=== PATIENT | male | born 1965 | race Caucasian/White ===

== ENCOUNTER → 2020-11-07 08:11 | Outpatient (CLI) | payer BC, SELFPAY ==
--- NOTE | ~2020-11-07 | MR_ITS ---
EXAMINATION: MR thoracic spine wo con DATE: 11/07/2020 09:05 INDICATION: Thoracic back pain. TECHNIQUE: Magnetic resonance imaging (MRI) of the thoracic spine was performed without intravenous c ontrast. Sagittal localizer T1-weighted FSE of the cervical spine was obtained. Thoracic spine sequen monica included sagittal T2-weighted FSE, sagittal T1-weighted FSE, sagittal T2-weighted FS FSE, and axi al T2-weighted FSE. COMPARISON: Chest 2 views 09/05/17 FINDINGS: There is 12 degrees dextroscoliosis of upper thoracic spine and 11 degrees levoscoliosis of lower thoracic spine. Vertebral body heights are normal in thoracic spine. There is a hemangioma in T5 vertebral body. There is mild cervical spondylosis. There is mildly decreased disc height at T5-T6 , T6-T7, T8-T9, and T9-T10. The discs do not extend beyond the endplate margins in thoracic spine. Th ere is multilevel mild facet joint osteoarthritis in thoracic spine. No thoracic neural foraminal maida nosis. The spinal cord signal intensity is normal. IMPRESSION: 1. Scoliosis. 2. Mild thoracic spondylosis. Reviewed, dictated and finalized at location A.
== END ==
PROVIDERS: PCP Physician Assistant; Visit Provider Nurse Practitioner Family
DX: M41.9 Scoliosis, unspecified (principal); M47.894 Other spondylosis, thoracic region
CPT/HCPCS: 72146

== ENCOUNTER 2023-03-24 14:35 | Outpatient (CLI) | payer BC, SELFPAY ==
--- NOTE | ~2023-03-24 | XR_ITS ---
XR hand RT min 3V 03/24/2023 15:12 Indication: Arthralgias. Procedure: 3 views right hand Comparison: No prior studies for comparison. Findings: Mild polyarticular osteoarthritis. No fracture, subluxation or dislocation. No erosive spann ges. No foreign bodies. Impression: 1: Mild polyarticular osteoarthritis. Reviewed, dictated and finalized at location A. Impression: 1: Mild polyarticular osteoarthritis.
--- NOTE | ~2023-03-24 | XR_ITS ---
XR sacroiliac joints min 3V 03/24/2023 15:12 Indication: Arthralgias Procedure: 3 views of the sacroiliac joints Comparison: No prior studies for comparison. Findings: Sacroiliac joints are symmetric with mild degenerative changes. No erosive changes. No anky losis. Sacral foramen are symmetric. Surrounding osseous structures are unremarkable. Impression: 1: Mild symmetric degenerative change of the sacroiliac joints. Reviewed, dictated and finalized at location A. Impression: 1: Mild symmetric degenerative change of the sacroiliac joints.
--- NOTE | ~2023-03-24 | XR_ITS ---
XR foot LT min 3V 03/24/2023 15:12 Indication: Arthralgias Procedure: 4 views left foot Comparison: No prior studies for comparison. Findings: There is anatomic alignment. There is an exostosis originating from the lateral margin of t he fourth metatarsal, likely benign. No acute fracture or traumatic malalignment. Lisfranc joint inta ct. No significant joint space narrowing. No erosive changes. Impression: 1: No significant bone or joint abnormality. Reviewed, dictated and finalized at location A. Impression: 1: No significant bone or joint abnormality.
--- NOTE | ~2023-03-24 | XR_ITS ---
XR hand LT min 3V 03/24/2023 15:12 Indication: Left hand pain. Polyarthralgias. Procedure: 3 views left hand Comparison: No prior studies for comparison. Findings: There is mild polyarticular osteoarthritis of the left hand. Normal mineralization. There i s anatomic alignment. No fracture or traumatic malalignment. No soft tissue abnormality. No foreign b odies. Impression: 1: Mild polyarticular osteoarthritis of the left hand. Reviewed, dictated and finalized at location A. Impression: 1: Mild polyarticular osteoarthritis of the left hand.
--- NOTE | ~2023-03-24 | XR_ITS ---
XR foot RT min 3V 03/24/2023 15:12 INDICATION: Right foot pain PROCEDURE: 4 views right foot COMPARISON: No prior studies for comparison. FINDINGS: Fracture, dislocation or subluxation is not identified. There is anatomic alignment. No sig nificant degenerative change. The soft tissues appear within normal limits. No foreign bodies are id entified. IMPRESSION: 1: No significant bone or joint abnormality. Reviewed, dictated and finalized at location A.
--- NOTE | ~2023-03-24 | XR_ITS ---
[XR_[id number]_CR ] INDICATION: Arthralgias TECHNIQUE: Frontal projection of the upper ribs, frontal projection of the lower ribs, oblique projec tion of all the ribs, frontal inspiratory chest x-ray for interpretation. FINDINGS: There are no displaced rib fractures identified. There are no soft tissue abnormality see n. The lungs are clear. There is scoliosis. There is a radiopaque BB overlying the lower chest. IMPRESSION: 1:No acute displaced rib fractures. Reviewed, dictated and finalized at location A.
--- NOTE | ~2023-03-24 | XR_ITS ---
XR sternoclavicular joint BI 03/24/2023 15:12 INDICATION: Arthralgias PROCEDURE: 3 views of the sternoclavicular joints COMPARISON: No prior studies for comparison. FINDINGS: Fracture, dislocation or subluxation is not identified. No erosive changes. No asymmetry. T he soft tissues appear within normal limits. No foreign bodies are identified. IMPRESSION: 1: No significant bone or joint abnormality. Reviewed, dictated and finalized at location A.
--- NOTE | ~2023-03-24 | XR_ITS ---
XR lumbar spine 2-3V 03/24/2023 15:12 Indication: Arthralgia Procedure: 3 views lumbar spine Comparison: No prior studies for comparison. Findings: Vertebral body heights are maintained. There is mild dextrocurvature. No fracture, subluxat ion or dislocation. There is a probable right L1 transverse process fracture, most likely chronic. Th ere is disc narrowing at L5-S1. There is facet hypertrophy at this level. Impression: 1: Moderate lumbar spondylosis with dextroscoliosis. 2: Probable healed right L1 transverse process fracture, most likely chronic. Reviewed, dictated and finalized at location A. Impression: 1: Moderate lumbar spondylosis with dextroscoliosis. 2: Probable healed right L1 transverse process fracture, most likely chronic.
== END 2023-03-24 14:36 | disposition home or self-care (01) ==
LOC: ANHIMG 14:40
PROVIDERS: PCP Physician Assistant; Visit Provider Physician Assistant Medical
DX: M25.50 Pain in unspecified joint (principal); Z79.899 Other long term (current) drug therapy; L40.9 Psoriasis, unspecified; M19.042 Primary osteoarthritis, left hand; M19.041 Primary osteoarthritis, right hand; M47.896 Other spondylosis, lumbar region; M53.3 Sacrococcygeal disorders, not elsewhere classified
CPT/HCPCS: 71111; 71130; 72100; 72202; 73130; 73630

== ENCOUNTER 2024-11-13 13:38 | Outpatient (CLI) | payer BC, SELFPAY ==
--- NOTE | ~2024-11-13 | XR_ITS ---
XR sacroiliac joints min 3V Ordering provider: Jennifer Sanchez MD History: . ANKYLOSING SPONDYLITIS OF UNSPEC SITES IN SPINE . Comparison: None. FINDINGS: BONES: No acute fracture or dislocation. Sclerotic area seen in the intertrochanteric area bilaterally. JOINTS: The bilateral sacroiliac joint spaces shows bilateral sacroiliitis. Possible bony fusion of t he sacroiliac joints is seen. SOFT TISSUES: Unremarkable. IMPRESSION: NO ACUTE OSSEOUS ABNORMALITY. Bilateral sacroiliitis with fusion. Reviewed, dictated and finalized at location A.
--- NOTE | ~2024-11-13 | XR_ITS ---
XR_RIBSBI_CR Ordering provider: Jennifer Sanchez MD History: . ANKYLOSING SPONDYLITIS OF UNSPEC SITES IN SPINE . Comparison: None. FINDINGS: BONES: No acute rib fracture. Levoscoliosis of the spine. MEDIASTINUM: The cardiac silhouette is not enlarged. LUNGS: No effusions or infiltrates. No pneumothorax. SOFT TISSUES: Normal. Metallic shadow is seen in the soft tissues. IMPRESSION: No acute osseous abnormality of the bilateral ribs. Reviewed, dictated and finalized at location A.
--- NOTE | ~2024-11-13 | XR_ITS ---
3 VIEWS LUMBAR SPINE Ordering provider: Jennifer Sanchez MD History: . ANKYLOSING SPONDYLITIS OF UNSPEC SITES IN SPINE . Comparison: March 24, 2023. FINDINGS: VERTEBRAL BODIES: No visible fracture or subluxation. DISK SPACES: Narrowing of the disc L5-S1. Bilateral sacroiliitis. SOFT TISSUES: Normal. IMPRESSION: No acute osseous abnormality lumbar spine. Degenerative disc disease at the level of L5-S1. Bilateral sacroiliacs. Reviewed, dictated and finalized at location A.
--- OUTSIDE RECORDS SUMMARY | 2024-11-13 13:44 | XMS_ITS | Data Portability ---
Author Organization [facility], Main Office Address [address] [place] [address] Assessment No assessment recorded. Plan of Treatment Reminders Order Date Submit Date Provider Last Modified By Organization Details Last Modified Time Details Appointments None record ed. Lab None record ed. Referral None record ed. Procedures None record ed. Surgeries None record ed. Imaging None record ed. Medication Orders None record ed. Patient TargetsNo targets recorded. Patient InstructionsNo instructions recorded. Reason for Referral None Reported. Problems Name Problem SNOMED Code Status Onset Date Resolution Date Notes Provider Name and Address Organization Details Recorded Time Disorder of shoulder 944043265 Active Not Available [facility] 3 13:17:58 Shoulder joint pain 089607956 Active Not Available [facility] 3 13:17:58 Pain in thoracic spine 246939399 Active Not Available [facility] 3 13:17:58 Pain in limb 22079465 Active Not Available [facility] 3 13:17:58 Impacted cerumen of bilateral ears 8160836275116 108 Active 2022 Forrest Meredith MD [address] [place] [address], [phone] , [facility] [employer] 3 14:31:11 Problem Notes None recorded. Medical Equipment None Reported. Allergies No known drug allergies Medications Name Sig Start Date Stop Date Status Note LastModified by Organization Details LastModified Time celecoxib 200 mg capsule 10/28 completed Not Available Not Available Not Available cyclobenzapr ine 10 mg tablet 10/28 completed Not Available Not Available Not Available prednisone 10 mg tablet 10/28 completed Not Available Not Available Not Available hydrocodone 5 mg-acetamino phen 325 mg tablet 10/28 completed Not Available Not Available Not Available ondansetron HCl 4 mg tablet 10/28 completed Not Available Not Available Not Available acetaminophe n 300 mg-codeine 30 mg tablet 10/28 completed Not Available Not Available Not Available ciprofloxaci n 500 mg tablet 10/28 completed Not Available Not Available Not Available omeprazole 40 mg capsule,hilario yed release 10/28 completed Not Available Not Available Not Available lorazepam 0.5 mg tablet 10/28 completed Not Available Not Available Not Available tamsulosin 0.4 mg capsule 10/28 completed Not Available Not Available Not Available cephalexin 500 mg capsule 10/28 completed Not Available Not Available Not Available oseltamivir 75 mg capsule 10/28 completed Not Available Not Available Not Available lansoprazole 15 mg capsule,hilario yed release 10/28 completed Not Available Not Available Not Available buspirone 7.5 mg tablet 10/28 completed Not Available Not Available Not Available diclofenac sodium 75 mg tablet,delay ed release 10/28 completed Not Available Not Available Not Available ibuprofen 600 mg tablet 10/28 completed Not Available Not Available Not Available amoxicillin 875 mg-potassium clavulanate 125 mg tablet 10/28 completed Not Available Not Available Not Available Tylenol TYLENOL # 3 active Q DAY Not Available Not Available No t Available Chantix Starting Month Box 0.5 mg (11)-1 mg (42) tablets in dose pack 10/28 completed Not Available Not Available Not Available Flucelvax Quad 8789-3561 (PF) 60 mcg (15 mcg x 4)/0.5 mL IM syringe 10/28 completed Not Available Not Available Not Available Afluria Quad (PF) 60 mcg (15 mcg x 4)/0.5 mL IM syringe ADM 0.5ML IM UTD active Not Available Not Available No t Available Vitals Date Recorded Body weight Body mass index (BMI) Body height Body temperature Provider Name and Address Organization Details Last Updated DateTime 05/18/2023 94174.19 g 19.5 kg/m2 175.26 cm 98.2 [degF] Iris Watesr RN [place] - [place] [facility] 05/18/2023 14:05:25 Social History None recorded. Functional Status Question Answer Note LastModified by Organizat ion Details LastModified Time What is your level of alcohol consumption? Occasional [email or web address] Information not available 04/24/2023 Mental Status None recorded. Family History Relationship Description Onset Age of this Age Resolved Age Notes LastModified by Organization Details LastModified Time Father No current problems or disability [email or web address] Not available 04/24 15:33:57 Mother No current problems or disability [email or web address] Not available 04/24 15:33:57 Medical History Condition Response MRSA N BACK INJECTIONS N ALLERGIES/HAYFEVER N LUNG DISEASE/DISORDER N HISTORY OF DRUG ABUSE N INSOMNIA N ESRD N RADIATION / CHEMOTHERAPY N COPD N HIGH CHOLESTEROL / HYPERLIPIDEMIA N HYPERTHYROIDISM N PVD N BLOOD DISEASES N EAR OR HEARING PROBLEMS N HYPOTHYROIDISM N SHINGLES N DEPRESSION (INCLUDING POST ) N BACK / NECK PROBLEMS N HAVE YOU BEEN HOSPITALIZED OR SEEN IN [facility] ER IN THE PAST YEAR ? N FAILED BACK SYNDROME N STROKE/TIA N POLYCYSTIC OVARIES N OBESITY N ANEURYSM N HISTORY WITH COMPLICATIONS WITH ANESTHES IA ? N Do you have Advance directive? N USE OF BLOOD THINNERS N NO SIGNIFICANT PAST MEDICAL HISTORY N DIABETES, TYPE N VON WILLIBRAND'S DISEASE N PARATHYROID DISEASE N ENT N SEASONAL ALLERGIES N HEARTBURN / REFLUX N POST LAMINECTOMY SYNDROME N HEPATITIS / LIVER DISEASE N SLEEP DISORDER N ARTERIAL INSUFFICIENCY N SEIZURES/EPILEPSY N HEADACHES/MIGRAINES N CHF N PACEMAKER N DIZZINESS N AIDS/HIV N HEART DISEASE/HEART PROBLEMS N NEUROPSYCHOLOGICAL N HYPERTENSION N CANCER: SPECIFY N TOURETTE'S N BLOOD TRANSFUSION N ANEMIA/BLOOD DISORDER N ANESTHESIA COMPLICATIONS N CHRONIC EAR INFECTIONS N ATRIAL FIBRILLATION N AUTOIMMUNE DISEASE N TUBERCULOSIS N Past Encounters Encounter ID Performer Location Encounter Start Date Encounter Closed Date Diagnosis/Indication Diagnosis SNOMED-CT Code Diagnosis ICD10 Code Diagnosis Note [id number] Forrest Meredith MD [facility] [place] [address] [place] [address] 05/18/2023 13:58:38 05/18/2023 15:00:57 Impacted cerumen of bilateral ears 1256249770 219293 H61.23 Health Concerns Section Related Observation LastModified by Organization Detai ls LastModified Time None Recorded Concern Status LastModified by Organization Details LastModified Time None Recorded Advance Directives Directive None Recorded Payers Encounter Date Sequence Insurance Name Policy Number Policy Dueñas Covered Member ID Dueñas Member ID Guarantor Name 05/18/2023 1 MARLEEN (PPO) [id number] 4 Deshawn William [id number] BY Deshawn William Notes Date Note Type Note Provider Name a vt Address Organization Details Recorded Time 05/18/2023 text/html ear sherry Meredith MD [address] [place] [address], [place], [address], [facility] 05/18/2023 14:31:42
--- OUTSIDE RECORDS SUMMARY | 2024-11-13 13:44 | XMS_ITS | Clinical Summary ---
Author Organization [facility] Address [address] [address] Phone Care Team Providers Care [employer] Lieutenant Name Role Phone EstradaVance larkin Fauzia STOCKTON Primary Care Provider [phone] Felipe Key PAC Unavailable + [phone] Allergies No known active allergies Medications acetaminophen-code ine (TYLENOL #3) 300-30 MG Tablet 0 10/29/2017 Ac tive Social History Tobacco Use Types Packs/Day Years Used Date Smoking Tobacco: Former Smokeless Tobacco: Never Alcohol Use Standard Drinks/Week Comments Yes 0 (1 standard drink = 0.6 oz pur e alcohol) socially Sex and Gender Information Value Date Recorded Sex Assigned at Not on file Legal Sex Male 10:13 AM CDT Gender Identity Not on file Sexual Orientation Not on file Plan of Treatment Health Maintenance Due Date Last Done Comments Hepatitis C Virus (HCV) Screening 1965 TdaP Immunization 1965 Hepatitis B Immunization (1 of 3 - 19+ 3-dose series) 1984 Colonoscopy 2010 Colorectal Cancer Screening 2010 Cologuard 12/19/2015 Immunochemical Fecal Occult Blood 12/19/2015 Pneumococcal Immunization (5 0+ years) (1 of 1 - PCV) 12/19/2015 Zoster Immunization (1 of 2) 12/19/2015 PSA Discussion 2020 Influenza Immunization (#1) 2024 SARS-COV-2 Immunization ( - 2023-25 season) 2024 Respiratory Syncytial Virus (RSV) Immunization (Adult) (1 - 1-dose 75+ series) 2040 Meningococcal Immunization (ACWY) Aged Out No longer eligible based on patient's age to complete this topic Pneumococcal Immunization Combined Aged Out No longer eligible based on patient's age to complete this topic Rotavirus Immunization Aged Out No lo nger eligible based on patient's age to complete this topic Insurance [facility] Care Teams [employer] Lieutenant Relationship Specialty Start Date End Date Vance Linares DO [address] [place] [address] PCP - General Internal Medicine 09/26/17 Felipe Key PAC [address] [place] [address] Physician Health Management Consultant 09/26/17
--- OUTSIDE RECORDS SUMMARY | 2024-11-13 13:44 | XMS_ITS | Referral Summary ---
Author Organization [facility] Address [address] [place] [phone] Care Team Providers Care Work Checker Name Role Phone Shilpa Villavicencio Primary Care Provider [phone] Jame Bynum MD Unavailable [phone] Encounters Date Type Department Care Team Description 10/29/2024 11:30 AM CDT Ancillary Procedure [facility] Cardiology [address] [place] [phone] Palpitations 10/29/2024 11:00 AM CDT Office Visit [facility] Cardiology [address] [place] [phone] Johnson Hunt MD Palpitations (Primary Dx); MCKAY (dyspnea on exertion); Pulmonary emphysema, unspecified emphysema type (HCC); Tobacco abuse; Lipid screening 10/28/[address] [phone] Rosita Gleason CMA 10/21/2024 3:30 PM CDT Office Visit [facility] Family Medicine [address] [place] [address] [place] [phone] Shilpa Villavicencio PA Anxiety (Primary Dx); Cigarette smoker; Palpitations; Adult BMI <19 kg/sq m 08/19/2024 3:30 PM CDT Office Visit [facility] Medicine [address] [place] [address] [place] [phone] Shilpa Villavicencio PA Psoriatic arthritis (HCC) (Primary Dx); Palpitations; Chronic right shoulder pain; Cigarette smoker; Mixed hyperlipidemia; Prediabetes; Anxiety; Stress; Adult BMI <19 kg/sq m 08/13/2024 Results Follow-Up [facility] [address] [facility] [address] [place] [phone] Shilpa Villavicencio PA CBC with auto differential from Last 3 Months Allergies No known active allergies Medications cyclobenzapri ne (FLEXERIL) 10 mg tablet Take 1 tablet (10 mg total) by mouth 3 (three) times a day as needed for muscle spasms 30 tablet 10/11/19 23 Active LORazepam (ATIVAN) 0.5 mg tabletIndicat ions:Anxiety Take 1 tablet (0.5 mg total) by mouth 3 (three) times a day as needed for anxiety 20 tablet 01/02/20 23 Active clobetasoL (TEMOVATE) 0.05 % ointment APPLY TO AFFECTED AREAS OF HANDS TWICE A DAY FOR 2-3 WEEKS NEEDED. AVOID ARMPITS, FACE, AND GROIN 05/23/20 23 Active buPROPion XL (WELLBUTRIN XL) 150 mg 24 hr tablet Take 1 tablet (150 mg total) by mouth every morning 90 tablet 2 10/22/19 25 Active Additional Information Patient not taking.Reason: Other, Reported on 10/29/2024 acetaminophen -codeine (TYLENOL with CODEINE #3) 300-30 mg per tabletIndicat ions:Chronic right shoulder pain Take 1 tablet by mouth every 4 (four) hours as needed for pain for pain 60 tablet 11/12/19 25 Active buPROPion XL (WELLBUTRIN XL) 150 mg 24 hr tablet Take 1 tablet (150 mg total) by mouth every morning 90 tablet 2 08/20/19 25 025 Discontinued(Re order) acetaminophen -codeine (TYLENOL with CODEINE #3) 300-30 mg per tabletIndicat ions:Chronic right shoulder pain Take 1 tablet by mouth every 4 (four) hours as needed for pain for pain 60 tablet 08/26/19 25 025 Discontinued Active Problems Problem Noted Date Diagnosed Date Leukocytosis 02/20/2024 Assessment & Plan (02/20/2024 8:43 AM CDT): Patient is leukocytes were elevated. He has had more congestion and a productive cough. Will put him on Zithromax and complete the course and repeat CBC with a peripheral smear in the next few weeks. Follow-up pending those repeat labs Prediabetes 02/20/2024 Assessment & Plan (08/25/2024 8:42 PM CDT): Pre-diabetes/hyperglycemia is a precursor to Dm. Stressed importance of working on diet (decrease your simple sugars and one carbohydrate with each meal) and increase you exercise to achieve weight loss and this will help prevent you from progressing to diabetes. Assessment & Plan (02/20/2024 8:47 AM CDT): Pre-diabetes/hyperglycemia is a precursor to Dm. Stressed importance of working on diet (decrease your simple sugars and one carbohydrate with each meal) and increase you exercise to achieve weight loss and this will help prevent you from progressing to diabetes. Mixed hyperlipidemia 02/20/2024 Assessment & Plan (08/25/2024 8:42 PM CDT): Encouraged patient to follow low fat/low chol diet like the Mediterranean diet. Increase good fats in the diet. Increase exercise. Monitor labs as needed. Assessment & Plan (02/20/2024 8:48 AM CDT): Encouraged patient to follow low fat/low chol diet like the Mediterranean diet. Increase good fats in the diet. Increase exercise. Monitor labs as needed. Reviewed with patient as smoker he does have increased cardiovascular risk. Would be glad to start a statin. He really wants to work on diet changes 1st. Reassess in 6 months to a year Palpitations 06/25/2023 Assessment & Plan (08/25/2024 8:43 PM CDT): Patient has had palpitations for the last couple of years. Decreased his caffeine and did have some improvement that they are still present. Was referred to Dr. Hunt but had difficulty getting away from work. Would like new referral to see if he can follow-up to have this addressed. Encouraged to decrease caffeine soda coffee etc.. Stopped smoking Assessment & Plan (06/25/2023 11:11 AM [employer]): Patient is noting palpitations. Will have to hard fast beats and then kicked back into a normal rhythm. Can not really see a correlating factor. EKG in the office was essentially normal. Will refer to Cardiology for probable Holter monitor and further evaluation. Cigarette smoker 03/14/2023 Assessment & Plan (08/25/2024 8:42 PM CDT): Encouraged smoking cessation. Discussed 3 minutes. Reviewed options for assistance with cessation. Reviewed manager intermediate sequela associated with smoking. Pt declines assistance at this time but may contact the office at anytime for further help as they desire. Low-dose CT will be due in December. Order placed Assessment & Plan (02/20/2024 8:42 AM CDT): Encouraged continued efforts with smoking cessation. Patient is doing well with the Wellbutrin XL 150. Wants to keep the same dose. Continue to encourage reduction Assessment & Plan (12/03/2023 6:18 PM CDT): Pt desires assistance with cessation. Discussed options at length. Will start Wellbutrin. No seizure history. Reviewed risks, benefits, alternatives, side effects and proper use. Take first thing in the am to avoid sleep disturbances. Encouraged to decreased cigs as tolerated. Plan to stay on the Wellbutrin for 4-6 months, even if successful in cessation quickly. F.u if any increased emotional sxs or suicidal thoughts Due for LDCT. Assessment & Plan (06/25/2023 11:10 AM [employer]): Encouraged smoking cessation. Discussed 3 minutes. Reviewed options for assistance with cessation. Reviewed manager intermediate sequela associated with smoking. Pt declines assistance at this time but may contact the office at anytime for further help as they desire. Low-dose CT will be due in October of 2023 Assessment & Plan (03/14/2023 12:15 AM CDT): Encouraged smoking cessation. Discussed 3 minutes. Reviewed options for assistance with cessation. Reviewed manager intermediate sequela associated with smoking. Pt declines assistance at this time but may contact the office at anytime for further help as they desire. He is strongly considering hypnosis for assistance Adult BMI <19 kg/sq m 03/13/2023 Assessment & Plan (10/21/2024 3:32 PM CDT): Weight/BMI is in healthy range. Continue healthy lifestyle to maintain. Assessment & Plan (08/19/2024 3:33 PM CDT): Weight/BMI is in low range. Continue to work on weight gain to return to healthy weight. Assessment & Plan (02/20/2024 7:07 AM CDT): Weight/BMI is in healthy range. Continue healthy lifestyle to maintain. Assessment & Plan (11/23/2023 7:25 AM CDT): Weight/BMI is in healthy range. Continue healthy lifestyle to maintain. Assessment & Plan (06/25/2023 11:10 AM [employer]): Weight/BMI is in healthy range. Continue healthy lifestyle to maintain. Assessment & Plan (03/13/2023 5:21 PM CDT): Weight/BMI is in healthy range. Continue healthy lifestyle to maintain. Psoriasis 03/09/2023 Assessment & Plan (08/02/2023 1:57 PM [employer]): Dx by derm 02/21 with psoriasis. Assessment & Plan (07/28/2023 12:46 PM [employer]): Dx by derm 912 with psoriasis. Assessment & Plan (06/25/2023 11:10 AM [employer]): Continue per [facility]. Currently on methotrexate 15 q.week and folic acid. Does not feel like the methotrexate is giving him any help so he stopped it. Recommend calling [facility] and letting them know this so he can continue to find a management medication. Assessment & Plan (04/27/2023 7:48 AM [employer]): Dx by derm 9/12 with psoriasis. Assessment & Plan (03/14/2023 12:14 AM CDT): Continue per Dermatology. Currently using topicals Assessment & Plan (03/09/2023 8:31 AM CDT): Dx by derm 02/21 with psoriasis. Psoriatic arthritis 02/23/2023 Assessment & Plan (08/25/2024 8:43 PM CDT): Psoriatic arthritis diagnosis. He had been following with [facility] but difficult for him to make the trip over. Would like to be seen more locally to discuss biologics or other interventions as he is still in quite a bit of pain. Will make the referral to [place] peripatologist for further evaluation Assessment & Plan (02/20/2024 8:42 AM CDT): Encouraged follow-up with [facility] to discuss treatment options. Continue with Tylenol with codeine as needed for more severe pain Assessment & Plan (09/07/2023 8:13 AM CDT): Images from the original note were not included. Mod cdai. Pt has a lot of rib and chest wall/sternoclavicular joint pain. Pt has hand joint pain, sternoclavicular joint swelling (rt>lt), occ shoulder pain and sternocostal rib pain for years. He also was recently diagnosed with psoriasis. Serologies and physical findings compatible with psoriatic arthritis. Neg HLA B27 in past. He has tylenol 3 from pcp and flexeril for pain. He only took mtx for 6 weeks and stopped it since he thought it was not helping. It was also causing possible headache but not sure. Informed him again that he needs to be on this at least 3 months. Gave pt to day 1 month for sq rasuvo samples 15 mg sq weekly to inject and to continue FA 1 mg po every day and f/u in 1 month to re-evaluate. Recommend starting coxentyx 150mg sq monthly Check quant gold. Advised pt to stop smoking again. Previous labs and imaging: On his chest CT 10/2021 he had sclerotic changes along the right aspect the manubrium adjacent to the sternoclavicular joint. There is also sclerosis along the inferior margin of the sternum, nonspecific but stable. He also has emphysema changes on his chest CT. He has over 40 pack year history. Right hand US 03/2023: Cxr neg Hand xrays---mild bilat polyarticular OA of bilat hands Feet---no significant bone or joint abnromality Lumbar spine---mod lumbar spondylosis and dextroscoliosis. Healed L1 transverse process fracture, chronic. SI joints---mild symmetric degenerative change of the joints. Sternoclavicular joint xrays nl. Labs 03/2023: Anti smooth muscle Ab neg UA neg Hep A +/Hep B and C neg Crp 8.9H ESR 2 14.3.3 ETA neg IgG 1067 JUNG neg CMP neg UA neg CBC---wbc 11.4 Uric acid 3.4 RPR neg THO 36 CK 61 Assessment & Plan (08/03/2023 5:19 PM [employer]): Images from the original note were not included. Mod cdai. Pt has a lot of rib and chest wall/sternoclavicular joint pain. Pt has hand joint pain, sternoclavicular joint swelling (rt>lt), occ shoulder pain and sternocostal rib pain for years. He also was recently diagnosed with psoriasis. Serologies and physical findings compatible with psoriatic arthritis. Neg HLA B27 in past. He has tylenol 3 from pcp and flexeril for pain. He only took mtx for 6 weeks and stopped it since he thought it was not helping. It was also causing possible headache but not sure. Informed him again that he needs to be on this at least 3 months. Gave pt to day 1 month for sq rasuvo samples 15 mg sq weekly to inject and to continue FA 1 mg po every day and f/u in 1 month to re-evaluate. Check quant gold at next visit. Advised pt to stop smoking again. Previous labs and imaging: On his chest CT 10/2021 he had sclerotic changes along the right aspect the manubrium adjacent to the sternoclavicular joint. There is also sclerosis along the inferior margin of the sternum, nonspecific but stable. He also has emphysema changes on his chest CT. He has over 40 pack year history. Right hand US 03/2023: Cxr neg Hand xrays---mild bilat polyarticular OA of bilat hands Feet---no significant bone or joint abnromality Lumbar spine---mod lumbar spondylosis and dextroscoliosis. Healed L1 transverse process fracture, chronic. SI joints---mild symmetric degenerative change of the joints. Sternoclavicular joint xrays nl. Labs 03/2023: Anti smooth muscle Ab neg UA neg Hep A +/Hep B and C neg Crp 8.9H ESR 2 14.3.3 ETA neg IgG 1067 JUNG neg CMP neg UA neg CBC---wbc 11.4 Uric acid 3.4 RPR neg THO 36 CK 61 Assessment & Plan (07/28/2023 12:46 PM [employer]): Images from the original note were not included. Mod cdai. Pt has a lot of rib and chest wall/sternoclavicular joint pain. Pt has hand joint pain, sternoclavicular joint swelling (rt>lt), occ shoulder pain and sternocostal rib pain for years. He also was recently diagnosed with psoriasis. Serologies and physical findings compatible with psoriatic arthritis. Neg HLA B27 in past. He has tylenol 3 from pcp and flexeril for pain. Seen with Dr. Agosto today, Dr. Bynum is out of the office today. 1 h spent with pt today. Advised pt to stop smoking. Start mtx 15mg po qweek, FA 1 mg po every day. Discussed potential se and risks of mtx therapy. Advised pt to f/u in 1 month to recheck labs. Check quant gold at next visit. Advised pt to stop smoking Previous labs and imaging: On his chest CT 10/2021 he had sclerotic changes along the right aspect the manubrium adjacent to the sternoclavicular joint. There is also sclerosis along the inferior margin of the sternum, nonspecific but stable. He also has emphysema changes on his chest CT. He has over 40 pack year history. Right hand US 03/2023: Cxr neg Hand xrays---mild bilat polyarticular OA of bilat hands Feet---no significant bone or joint abnromality Lumbar spine---mod lumbar spondylosis and dextroscoliosis. Healed L1 transverse process fracture, chronic. SI joints---mild symmetric degenerative change of the joints. Sternoclavicular joint xrays nl. Labs 03/2023: Anti smooth muscle Ab neg UA neg Hep A +/Hep B and C neg Crp 8.9H ESR 2 14.3.3 ETA neg IgG 1067 JUNG neg CMP neg UA neg CBC---wbc 11.4 Uric acid 3.4 RPR neg THO 36 CK 61 Assessment & Plan (06/25/2023 11:10 AM [employer]): Continue per [facility]. Currently on methotrexate 15 q.week and folic acid. Does not feel like the methotrexate is giving him any help so he stopped it. Recommend calling [facility] and letting them know this so he can continue to find a management medication. Assessment & Plan (04/27/2023 2:43 PM [employer]): Images from the original note were not included. Mod cdai. Pt has a lot of rib and chest wall/sternoclavicular joint pain. Pt has hand joint pain, sternoclavicular joint swelling (rt>lt), occ shoulder pain and sternocostal rib pain for years. He also was recently diagnosed with psoriasis. Serologies and physical findings compatible with psoriatic arthritis. Neg HLA B27 in past. He has tylenol 3 from pcp and flexeril for pain. Seen with Dr. Agosto today, Dr. Bynum is out of the office today. 1 h spent with pt today. Advised pt to stop smoking. Start mtx 15mg po qweek, FA 1 mg po every day. Discussed potential se and risks of mtx therapy. Advised pt to f/u in 1 month to recheck labs. Check quant gold at next visit. Advised pt to stop smoking Previous labs and imaging: On his chest CT 10/2021 he had sclerotic changes along the right aspect the manubrium adjacent to the sternoclavicular joint. There is also sclerosis along the inferior margin of the sternum, nonspecific but stable. He also has emphysema changes on his chest CT. He has over 40 pack year history. Right hand US 03/2023: Cxr neg Hand xrays---mild bilat polyarticular OA of bilat hands Feet---no significant bone or joint abnromality Lumbar spine---mod lumbar spondylosis and dextroscoliosis. Healed L1 transverse process fracture, chronic. SI joints---mild symmetric degenerative change of the joints. Sternoclavicular joint xrays nl. Labs 03/2023: Anti smooth muscle Ab neg UA neg Hep A +/Hep B and C neg Crp 8.9H ESR 2 14.3.3 ETA neg IgG 1067 JUNG neg CMP neg UA neg CBC---wbc 11.4 Uric acid 3.4 RPR neg THO 36 CK 61 Assessment & Plan (03/14/2023 12:14 AM CDT): Persistent chronic pain. Awaiting recommendations from Rheumatology Assessment & Plan (03/09/2023 2:37 PM CDT): Low cdai but this is due to not having hand joint pain, pt has a lot of rib and chest wall/sternoclavicular joint pain. Pt has hand joint pain, sternoclavicular joint swelling (rt>lt), occ shoulder pain and sternocostal rib pain for years. He also was recently diagnosed with psoriasis. Suspect this is psoriatic arthritis and he might have some enthesitis causing his joint pain. Will check serologies, rt hand US and xrays and re-evaluate in 2 weeks. Neg HLA B27 in past. He has tylenol 3 from pcp and flexeril for pain. Seen with Dr. Bynum. 1 h spent with pt today. Advised pt to stop smoking. On his chest CT 10/2021 he had sclerotic changes along the right aspect the manubrium adjacent to the sternoclavicular joint, stable. There is also sclerosis along the inferior margin of the sternum, nonspecific but stable. He also has emphysema changes on his chest CT. He has over 40 pack year history. Encounter for long-term (current) use of medicat ions 02/23/2023 Assessment & Plan (09/07/2023 8:15 AM CDT): HLA B27 neg 06/2019 Confirmed psoriasis by derm 02/11/2023. Cxr neg 03/2023 Hep Band c neg 03/2023 [facility] neg 03/2023. Assessment & Plan (08/02/2023 1:57 PM [employer]): HLA B27 neg 06/2019 Confirmed psoriasis by derm 02/11/2023. Cxr neg 03/2023 Hep Band c neg 03/2023 [facility] neg 03/2023. Assessment & Plan (07/28/2023 12:46 PM [employer]): HLA B27 neg 06/2019 Confirmed psoriasis by derm 02/11/2023. Cxr neg 03/2023 Hep Band c neg 03/2023 [facility] neg 03/2023. Assessment & Plan (04/27/2023 2:43 PM [employer]): HLA B27 neg 06/2019 Confirmed psoriasis by derm 02/11/2023. Cxr neg 03/2023 Hep Band c neg 03/2023 [facility] neg 03/2023. Assessment & Plan (03/09/2023 8:31 AM CDT): HLA B27 neg 06/2019 Confirmed psoriasis by derm 02/11/2023. Abnormal chest CT 02/23/2023 Assessment & Plan (08/02/2023 1:57 PM [employer]): Abn chest ct with some ground glass nodules and emphysema. Advised to stop smoking. Has over 40 pack year history. Chest CT 10/2021: FINDINGS: SMOKING RELATED LUNG DISEASE: There is a background of mild centrilobular and paraseptal pulmonary emphysema, which is upper lobe predominant. There is some pleuroparenchymal scarring again demonstrated within the apices. LUNG NODULES: Somewhat linear 5 mm perifissural/subpleural nodule in the right middle lobe on image number 106 is stable. 2 mm juxta fissural nodule within the right lower lobe on image number 130 is stable. 3 mm ground-glass nodule right middle lobe image 92, stable. No new suspicious pulmonary nodule within either lung. OTHER: . There is linear atelectasis in the right lower lobe, slightly greater than on prior examination. Mild atelectasis within the lingula, similar. No pneumonic consolidation. The central airways are widely patent. The thyroid gland is unremarkable. There are scattered nonenlarged mediastinal nodes, stable compared to the prior examination. Postinflammatory calcifications are noted. The esophagus is unremarkable. The heart is normal in size, without pericardial effusion. Thoracic aorta is normal in caliber. There is no axillary lymphadenopathy. Chest wall unremarkable. Visualized upper abdomen reveals no significant incidental findings. The osseous structures reveal sclerotic changes along the right aspect the manubrium adjacent to the sternoclavicular joint, stable. There is also sclerosis along the inferior margin of the sternum, nonspecific but stable. Metallic foreign body is noted anterior to the pericardium on axial image number 132, stable. IMPRESSION: 1. Interval stability of previously documented pulmonary nodules. No new suspicious nodularity. 2. Background of mild pulmonary emphysema. 3. Additional findings as above. Assessment & Plan (03/09/2023 2:32 PM CDT): Abn chest ct with some ground glass nodules and emphysema. Advised to stop smoking. Has over 40 pack year history. Chest CT 10/2021: FINDINGS: SMOKING RELATED LUNG DISEASE: There is a background of mild centrilobular and paraseptal pulmonary emphysema, which is upper lobe predominant. There is some pleuroparenchymal scarring again demonstrated within the apices. LUNG NODULES: Somewhat linear 5 mm perifissural/subpleural nodule in the right middle lobe on image number 106 is stable. 2 mm juxta fissural nodule within the right lower lobe on image number 130 is stable. 3 mm ground-glass nodule right middle lobe image 92, stable. No new suspicious pulmonary nodule within either lung. OTHER: . There is linear atelectasis in the right lower lobe, slightly greater than on prior examination. Mild atelectasis within the lingula, similar. No pneumonic consolidation. The central airways are widely patent. The thyroid gland is unremarkable. There are scattered nonenlarged mediastinal nodes, stable compared to the prior examination. Postinflammatory calcifications are noted. The esophagus is unremarkable. The heart is normal in size, without pericardial effusion. Thoracic aorta is normal in caliber. There is no axillary lymphadenopathy. Chest wall unremarkable. Visualized upper abdomen reveals no significant incidental findings. The osseous structures reveal sclerotic changes along the right aspect the manubrium adjacent to the sternoclavicular joint, stable. There is also sclerosis along the inferior margin of the sternum, nonspecific but stable. Metallic foreign body is noted anterior to the pericardium on axial image number 132, stable. IMPRESSION: 1. Interval stability of previously documented pulmonary nodules. No new suspicious nodularity. 2. Background of mild pulmonary emphysema. 3. Additional findings as above. Anxiety 12/19/2022 Assessment & Plan (08/25/2024 8:42 PM CDT): Restart the Wellbutrin. It did seem to help with anxiety and grief depression symptoms. Will start the XL 150 q.a.m.. Follow-up in 2-3 months to reassess or sooner for any other problems or concerns Assessment & Plan (12/19/2022 7:25 PM CDT): Continue to take Ativan PRN for anxiety. Encouraged patient to reach out to the office if he would like to begin daily anxiety or depression medication. Discussed the utility of grief counseling. Grief 10/10/2022 Overview (10/10/2022): 06/14/2021 Assessment & Plan (06/25/2023 11:09 AM [employer]): Patient continues to work through his 's . He just hit the 1 year anniversary. He is managing without medication at this point and has good family support. Assessment & Plan (03/14/2023 12:14 AM CDT): June 12, 2022. Still going through the grieving process. Has good support. May call at any time for assistance. Still declines medication Assessment & Plan (12/19/2022 7:18 PM CDT): He is grieving appropriately. Will continue to monitor. He continues to work long hours but reports adequate support from friends and family. Patient does not wish do take antidepressants or go to a counselor at this time. We discussed the benefits of going to a grief group. May call at any time for assistance Assessment & Plan (10/10/2022 6:49 PM CDT): He is grieving appropriately. Will continue to monitor. He has difficulty getting up out of bed functioning day-to-day to call consider an antidepressant lies continue support through family and mosque. May call at any time for assistance Chronic scapular pain 07/08/2020 Assessment & Plan (01/01/2023 8:11 PM CDT): Patient has had right shoulder, right clavicle, right scapular, and right chest wall pain for many years. Saw Dr. Johansen and could not get a diagnosis but still suspects that could be inflammatory arthritis. Most recently noted painful masses over the right clavicle and right side of the sternum. They are now decreasing in size. Patient had the best results for pain relief after taking a Medrol Dosepak, but symptoms resume after approximately 2 weeks after stopping steroids. Still using Tylenol 3 with codeine and Flexeril p.r.n. for the pain. DEL and ESR were negative. Discussed referral to Rheumatology to see if additional labs/workup can help lead to a diagnosis. He is in agreement with the plan. Assessment & Plan (10/10/2022 6:48 PM CDT): Patient has had right shoulder right clavicle right scapular right chest wall pain for many years. Saw Dr. Johansen and could not get a diagnosis. He still suspects that could be inflammatory arthritis. Patient states a Medrol Dosepak in the past has really helped with the symptoms. Will at times even have a rash in his hand that resolves with the Medrol Dosepak. Still using Tylenol 3 with codeine and Flexeril p.r.n. for the pain. Let us go ahead and recheck DEL and sed rate see we are able to pinpoint any type of changes. Go ahead with current regimen and follow-up sooner if there is any other problems or concerns. Recheck in about 2 months to reassess what the Medrol Dosepak did and with the labs have shown Assessment & Plan (07/08/2020 9:23 PM [employer]): Shoulder/ribs and chest wall pain. Hasn't had help from Ortho. Will refer to Pain management for further evlauation. Prefers [facility] in [place] Chest wall pain, chronic 07/08/2020 Assessment & Plan (06/25/2023 11:12 AM [employer]): Unable to obtain Tylenol threes. Will transition to tramadol for p.r.n. use for breakthrough pain. Assessment & Plan (03/14/2023 12:13 AM CDT): Chronic rib and scapular and sternum playing. Continue per [facility] and will await recommendations as may be intertwined with the rheumatologic diagnosis Assessment & Plan (01/01/2023 8:11 PM CDT): Patient has had right shoulder, right clavicle, right scapular, and right chest wall pain for many years. Saw Dr. Johansen and could not get a diagnosis but still suspects that could be inflammatory arthritis. Most recently noted painful masses over the right clavicle and right side of the sternum. They are now decreasing in size. Patient had the best results for pain relief after taking a Medrol Dosepak, but symptoms resume after approximately 2 weeks after stopping steroids. Still using Tylenol 3 with codeine and Flexeril p.r.n. for the pain. DEL and ESR were negative. Discussed referral to Rheumatology to see if additional labs/workup can help lead to a diagnosis. He is in agreement with the plan. Assessment & Plan (10/10/2022 6:50 PM CDT): This is a significant, separately identifiable problem that was evaluated and managed on the same day as the wellness exam Patient has had right shoulder right clavicle right scapular right chest wall pain for many years. Saw Dr. Johansen and could not get a diagnosis. He still suspects that could be inflammatory arthritis. Patient states a Medrol Dosepak in the past has really helped with the symptoms. Will at times even have a rash in his hand that resolves with the Medrol Dosepak. Still using Tylenol 3 with codeine and Flexeril p.r.n. for the pain. Let us go ahead and recheck DEL and sed rate see we are able to pinpoint any type of changes. Go ahead with current regimen and follow-up sooner if there is any other problems or concerns. Recheck in about 2 months to reassess what the Medrol Dosepak did and with the labs have shown Assessment & Plan (03/28/2022 9:13 PM CDT): Chronic chest wall pain. Continue with T3s and Flexeril p.r.n. Assessment & Plan (10/05/2021 6:19 AM CDT): Persistent chest wall and rib pain. Uses Tylenol 3 sparingly. Has refills available when needed. Assessment & Plan (03/06/2021 6:54 PM CDT): Continue T3s prn Assessment & Plan (01/16/2021 4:27 PM CDT): Continue T3s and Flexeril prn Assessment & Plan (07/08/2020 9:23 PM [employer]): Shoulder/ribs and chest wall pain. Hasn't had help from Ortho. Will refer to Pain management for further evlauation. Prefers [facility] in [place] Lung nodule 03/12/2020 Overview (01/16/2021): 06/2019 CT at [facility] A sub 6 mm indeterminate right middle lobe pulmonary nodule. Recommend follow-up chest CT in 1 year to document stability. 07/2020 - stable-->2021 Assessment & Plan (12/19/2022 7:18 PM CDT): LDCT complete on 11/04/2022 and lung nodules are stable. Follow up in 12 months. Assessment & Plan (07/08/2020 9:27 PM [employer]): 06/2019 CT at [facility] A sub 6 mm indeterminate right middle lobe pulmonary nodule. Recommend follow-up chest CT in 1 year to document stability. Due for CT followup of the nodule. Prefers [facility]. Assessment & Plan (03/12/2020 10:29 PM CDT): This is a significant, separately identifiable problem that was evaluated and managed on the same day as the wellness exam Will need repeat CT chest without contrast In 06/2020 Right shoulder pain 03/12/2020 Assessment & Plan (08/25/2024 8:42 PM CDT): Chronic chest wall pain and shoulder pain. Continues to use Tylenol with codeine for breakthrough pain. Assessment & Plan (12/03/2023 6:13 PM CDT): Patient states the T3s control his pain the best. Will place refills He is using medication as prescribed with good control of his symptoms Assessment & Plan (01/01/2023 8:10 PM CDT): Patient has had right shoulder, right clavicle, right scapular, and right chest wall pain for many years. Saw Dr. Johansen and could not get a diagnosis but still suspects that could be inflammatory arthritis. Most recently noted painful masses over the right clavicle and right side of the sternum. They are now decreasing in size. Patient had the best results for pain relief after taking a Medrol Dosepak, but symptoms resume after approximately 2 weeks after stopping steroids. Still using Tylenol 3 with codeine and Flexeril p.r.n. for the pain. DEL and ESR were negative. Discussed referral to Rheumatology to see if additional labs/workup can help lead to a diagnosis. He is in agreement with the plan. Assessment & Plan (10/10/2022 6:48 PM CDT): Patient has had right shoulder right clavicle right scapular right chest wall pain for many years. Saw Dr. Johansen and could not get a diagnosis. He still suspects that could be inflammatory arthritis. Patient states a Medrol Dosepak in the past has really helped with the symptoms. Will at times even have a rash in his hand that resolves with the Medrol Dosepak. Still using Tylenol 3 with codeine and Flexeril p.r.n. for the pain. Let us go ahead and recheck DEL and sed rate see we are able to pinpoint any type of changes. Go ahead with current regimen and follow-up sooner if there is any other problems or concerns. Recheck in about 2 months to reassess what the Medrol Dosepak did and with the labs have shown Assessment & Plan (07/08/2020 9:21 PM [employer]): Shoulder/ribs and chest wall pain. Hasn't had help from Ortho. Will refer to Pain management for further evlauation. Prefers [facility] in [place] Assessment & Plan (04/07/2020 9:11 PM CDT): Patient wants to monitor. Continue T3's prn Will consider injections with Dr. Roa if pain returns vs consider another opinion. Assessment & Plan (03/12/2020 10:35 PM CDT): This is a significant, separately identifiable problem that was evaluated and managed on the same day as the wellness exam cause for persistent right shoulder, scapula, clavicle and costochondritis type pain. Has been taking T3s for years. Will refer to Ortho/Dr. Roa for evaluation of this persistent pain. Deferred imaging. Start Cymbalta. Will see if helps with pain, stress and smoking cessation. Reviewed risks, benefit, alternatives, side effects and proper use. F.u 4-6 weeks. Skin lesion 03/12/2020 Assessment & Plan (01/01/2023 8:08 PM CDT): Chronic rash of the hands. Will refer to dermatology for further evaluation -- Unsure if the rash could be related to underlying rheumatologic concern. 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 Diprolene cream occluded hs. Assessment & Plan (03/12/2020 10:30 PM CDT): Known etiology. Check labs. Has steroid and antifungal at home. Has seen derm in the past without help Resolved Problems Problem Noted Date Diagnosed Date Resolved Date Subacute cough 02/20/2024 08/25/2024 Assessment & Plan (02/20/2024 8:44 AM CDT): Persistent subacute cough. Patient probably has COPD. Will start a Z-Jamey as his neutrophils are elevated. Complete the pack and will recheck his labs. Continue treatment control with [id number] cough syrup or Tessalon Perles which she has at home Lipid screening 12/03/2023 02/20/2024 Assessment & Plan (12/03/2023 6:16 PM CDT): Check labs Diabetes mellitus screening 12/03/2023 02/20/2024 Assessment & Plan (12/03/2023 6:16 PM CDT): Check labs Prostate cancer screening 12/03/2023 Assessment & Plan (12/03/2023 6:16 PM CDT): Check labs Annual physical exam 12/03/2023 024 Assessment & Plan (12/03/2023 6:16 PM CDT): Encouraged healthy lifestyle, good nutrition and exercise. Encouraged Calcium and Vitamin D and weight bearing exercise for bone health. Reviewed immunizations Reviewed age appropirate screenings. Adult BMI <19 kg/sq m 12/19/20222022 Assessment & Plan (12/19/2022 4:57 PM CDT): Weight/BMI is in healthy range. Continue healthy lifestyle to maintain. Adult BMI <19 kg/sq m 10/10/20222022 Assessment & Plan (10/10/2022 4:48 PM CDT): Weight/BMI is in healthy range. Continue healthy lifestyle to maintain. Annual physical exam 10/10/2022 023 Assessment & Plan (10/10/2022 6:49 PM CDT): Encouraged healthy lifestyle, good nutrition and exercise. Encouraged Calcium and Vitamin D and weight bearing exercise for bone health. Reviewed immunizations Reviewed age appropirate screenings. Diabetes mellitus screening 03/28/2022 10/10/2022 Assessment & Plan (03/28/2022 9:14 PM CDT): Check labs Need for vaccination 03/28/2022 023 Assessment & Plan (03/28/2022 9:14 PM CDT): Flu vaccine updated in the office today Annual physical exam 10/05/2021 022 Assessment & Plan (10/05/2021 6:19 AM CDT): Encouraged healthy lifestyle, good nutrition and exercise. Encouraged Calcium and Vitamin D and weight bearing exercise for bone health. Reviewed immunizations Reviewed age appropirate screenings. Prostate cancer screening 10/05/2021 Assessment & Plan (10/05/2021 6:19 AM CDT): Check labs Mixed hyperlipidemia 10/05/2021 023 Assessment & Plan (03/28/2022 9:13 PM CDT): Encouraged patient to follow low fat/low chol diet like the Mediterranean diet. Increase good fats in the diet. Increase exercise. Monitor labs as needed. Assessment & Plan (10/05/2021 6:19 AM CDT): Encouraged patient to follow low fat/low chol diet like the Mediterranean diet. Increase good fats in the diet. Increase exercise. Monitor labs as needed. Adult BMI <19 kg/sq m 10/04/20212022 Assessment & Plan (03/28/2022 9:13 PM CDT): Weight/BMI is in healthy range. Continue healthy lifestyle to maintain. Assessment & Plan (10/04/2021 5:02 PM CDT): Weight/BMI is in healthy range. Continue healthy lifestyle to maintain. Adult BMI <19 kg/sq m 03/29/20212021 Assessment & Plan (03/29/2021 5:34 PM CDT): Weight/BMI is in healthy range. Continue healthy lifestyle to maintain. Flu vaccine need 03/29/2021 10/05/2021 Assessment & Plan (03/29/2021 9:13 PM CDT): Vaccine updated in office today BMI 20.0-20.9, adult 03/02/2021 021 Assessment & Plan (03/02/2021 2:44 PM CDT): Weight/BMI is in healthy range. Continue healthy lifestyle to maintain. Fatigue 01/16/2021 02/20/2024 Assessment & Plan (12/03/2023 6:14 PM CDT): Probably multifactorial. Check labs and followup to re-evaluate Assessment & Plan (10/10/2022 6:48 PM CDT): Probably multifactorial. Check labs and followup to re-evaluate Assessment & Plan (03/28/2022 9:13 PM CDT): Probably multifactorial. Check labs and followup to re-evaluate Assessment & Plan (01/16/2021 4:27 PM CDT): Probably multifactorial. Check labs and followup to re-evaluate Diabetes mellitus screening 01/16/2021 03/29/2021 Assessment & Plan (01/16/2021 4:27 PM CDT): Check labs Lipid screening 01/16/2021 03/29/2021 Assessment & Plan (01/16/2021 4:26 PM CDT): Check labs BMI 20.0-20.9, adult 01/11/2021 021 Assessment & Plan (01/11/2021 3:39 PM CDT): Weight/BMI is in healthy range. Continue healthy lifestyle to maintain. BMI 20.0-20.9, adult 07/08/2020 021 Assessment & Plan (07/08/2020 3:02 PM [employer]): Weight/BMI is in healthy range. Continue healthy lifestyle to maintain. Screening for colon cancer 04/07/2020 0 01/16/2021 Assessment & Plan (07/08/2020 9:22 PM [employer]): Await results from Dr. Thrasher Assessment & Plan (04/07/2020 9:16 PM CDT): Refer to Dr. thrasher Encounter for screening colonoscopy 03/25/2020 04/07/2020 Overview (03/25/2020): Added automatically from request for surgery [id number] BMI 20.0-20.9, adult 03/12/2020 021 Assessment & Plan (04/07/2020 9:16 PM CDT): Weight/BMI is in healthy range. Continue healthy lifestyle to maintain. Assessment & Plan (03/12/2020 2:38 PM CDT): Continue healthy lifestyle to continue healthy weight Colon cancer screening 03/12/202004/07 Assessment & Plan (04/07/2020 9:15 PM CDT): Refer to Dr. Thrasher for screening colonoscopy Assessment & Plan (03/12/2020 10:30 PM CDT): Colonoscopy ordered Other fatigue 03/12/2020 04/07/2020 Assessment & Plan (03/12/2020 10:31 PM CDT): Probably multifactorial. Check labs and followup to re-evaluate Diabetes mellitus screening 03/12/2020 04/07/2020 Assessment & Plan (03/12/2020 10:30 PM CDT): Check labs Lipid screening 03/12/2020 04/07/2020 Assessment & Plan (03/12/2020 10:30 PM CDT): Check labs Cigarette smoker 03/12/2020 03/13/2023 Assessment & Plan (12/19/2022 7:20 PM CDT): Patient reports that he is ready to quit smoking. He is not willing to try Wellbutrin or Chantix again at this time but wishes to use Nicotine patches. We discussed different methods to help decrease the number of cigarettes he smokes each day. Encouraged patient to follow up in office for any needed support. Assessment & Plan (10/10/2022 6:48 PM CDT): Encouraged smoking cessation. Discussed 3 minutes. Reviewed options for assistance with cessation. Reviewed jail sequela associated with smoking. Pt declines assistance at this time but may contact the office at anytime for further help as they desire. Due for low-dose CT after October the 11/29/2022. Will [address] order Assessment & Plan (03/28/2022 9:12 PM CDT): Encouraged smoking cessation. Discussed 3 minutes. Reviewed options for assistance with cessation. Reviewed jail sequela associated with smoking. Pt declines assistance at this time but may contact the office at anytime for further help as they desire. Low-dose CT due to repeat in October of 2022. Will order at next visit Assessment & Plan (10/05/2021 6:16 AM CDT): Encouraged smoking cessation. Discussed 3 minutes. Reviewed options for assistance with cessation. Reviewed jail sequela associated with smoking. Pt declines assistance at this time but may contact the office at anytime for further help as they desires Discussed with patient Lung Cancer screening options with the patient. Encouraged LowDose CT Patient is between 55 - 77 yo. Is a current smoker or quit in the last 15 years. Has a 30+pack years smoking history. Is currently without any signs or symptoms of lung cancer. Is willing to consider curative lung surgery if needed. [id number] Assessment & Plan (03/29/2021 9:12 PM CDT): Patient is working on smoking cessation with the Wellbutrin. Will continue to monitor. Assessment & Plan (03/06/2021 6:52 PM CDT): Increase Wellbutrin -- Assessment & Plan (01/16/2021 4:26 PM CDT): Pt desires assistance with cessation. Discussed options at length. Will start Wellbutrin. No seizure history. Reviewed risks, benefits, alternatives, side effects and proper use. Take first thing in the am to avoid sleep disturbances. Encouraged to decreased cigs as tolerated. Plan to stay on the Wellbutrin for 4-6 months, even if successful in cessation quickly. F.u if any increased emotional sxs or suicidal thoughts Assessment & Plan (07/08/2020 9:22 PM [employer]): Encouraged smoking cessation. Discussed 3 minutes. Reviewed options for assistance with cessation. Reviewed manager intermediate sequela associated with smoking. Pt declines assistance at this time but may contact the office at anytime for further help as they desire. Assessment & Plan (04/07/2020 9:15 PM CDT): Encouraged smoking cessation. Discussed 3 minutes. Reviewed options for assistance with cessation. Reviewed jail sequela associated with smoking. Pt declines assistance at this time but may contact the office at anytime for further help as they desire. Assessment & Plan (03/12/2020 10:30 PM CDT): Encouraged smoking cessation. Discussed 3 minutes. Reviewed options for assistance with cessation. Reviewed manager intermediate sequela associated with smoking. Pt declines assistance at this time but may contact the office at anytime for further help as they desire. Will start cymbalta to see if helps with stress and indirectly helps with smoking. Will discuss again at next visit. Need for Tdap vaccination 03/12/2020 Assessment & Plan (03/12/2020 10:31 PM CDT): Updated in office today Stress 03/12/2020 10/31/2024 Assessment & Plan (08/25/2024 8:42 PM CDT): Restart the Wellbutrin. It did seem to help with anxiety and grief depression symptoms. Will start the XL 150 q.a.m.. Follow-up in 2-3 months to reassess or sooner for any other problems or concerns Assessment & Plan (12/19/2022 7:23 PM CDT): Patient is no longer taking Wellbutrin. Taking Ativan PRN for stress. Encouraged him to follow up if he feels he wants to begin a daily medication for stress and depression management. Discussed the importance of grief counseling Assessment & Plan (10/05/2021 6:18 AM CDT): Patient stop the Wellbutrin. Feels as though he is managing well without medication. Wants to continue to monitor. May call at any time if needs assistance. Assessment & Plan (03/29/2021 9:13 PM CDT): Stable with the Wellbutrin 300. Will send refills. Assessment & Plan (03/06/2021 6:53 PM CDT): Increase the wellbutrin to 300mg. May take TWO 150mg until gone. Will monitor and re-evaluate in 6 weeks to see if helping with smoking cessation and mood. Assessment & Plan (01/16/2021 4:25 PM CDT): Discussed depression at length including treatment options of medication, counseling and behavioral modification. Encouraged good sleep hygeine, good nutrition and exercise. Will continue to monitor closely. Currently no suicidal or homicidal thoughts. May call at anytime if needs assistance. Will start Wellbutrin XL150. No history of seizures Reviewed risks, benefit, alternatives, side effects and proper use. Assessment & Plan (04/07/2020 9:14 PM CDT): Increase Cymbalta to 60mg. Reassess in 6 weeks. Assessment & Plan (03/12/2020 10:31 PM CDT): Start cymbalta. Reviewed risks, benefit, alternatives, side effects and proper use. Need for immunization against influenza 03/12/2020 04/07/2020 Assessment & Plan (03/12/2020 10:32 PM CDT): Updated in office today Annual physical exam 03/12/2020 020 Assessment & Plan (03/12/2020 10:32 PM CDT): Encouraged healthy lifestyle, good nutrition and exercise. Encouraged Calcium and Vitamin D and weight bearing exercise for bone health. Reviewed immunizations Reviewed age appropirate screenings. Immunizations Immunization Administration Dates Next Due Flucelvax Influenza Quad 04/01/2017 Influenza, Quadrivalent, Spl it, Preservative Free, Intramuscular 03/28/2022,03/29/2021,03/12/2020,03/29 Influenza, Trivalent, Preser vative Free, Intramuscular 03/25/2014 Influenza, Unspecified 06/12/2024(Deferr ed: Patient Refused),06/19/2023(Deferred: Patient decision),07/13/2022(Deferred: Patient Refused) Moderna SARS-CoV-2 Monovalen t Vaccination (12+ YRS) 04/29/2021 Tdap 03/12/2020 Social History Tobacco Use Types Packs/Day Years Used Date Smoking Tobacco: Every Day Cigarettes 0.8 44.4 Started: 1980 Smokeless Tobacco: Never Tobacco Cessation:Ready to Q uit: Not Asked; Counseling Given: Not Answered Alcohol Use Standard Drinks/Week Comments Yes 0 (1 standard drink = 0.6 oz pur e alcohol) AUDIT-C Answer Date Recorded Q1: How often do you have a drink containing alcohol? Never 10/21/2024 Q2: How many drinks containi ng alcohol do you have on a typical day when you are drinking? Patient does not drink Q3: How often do you have si x or more drinks on one occasion? Never 10/21/2024 PHQ-2 Answer Date Recorded PHQ-2 Total Score (If total score is 3 or more points, staff should administer the PHQ-9) 0 10/21/2024 Sex and Gender Information Value Date Recorded Sex Assigned at Not on file Legal Sex Male 10:36 AM [employer] Gender Identity Not on file Sexual Orientation Not on file Last Filed Vital Signs Vital Sign Reading Time Taken Comments Blood Pressure 108/60 10/29/2024 11:00 AM CDT Pulse 82 10/29/2024 11:00 AM CDT Temperature 36.6 C (97.8 F) 10/21/2024 3:29 PM CDT Respiratory Rate 16 10/29/2024 11:00 AM CDT Oxygen Saturation 99% 10/29/2024 11:00 AM CDT Inhaled Oxygen Concentration - - Weight 56.2 kg (124 lb) 10/29/2024 11:00 AM CDT Height 175.3 cm (5' 9) 10/29/2024 11:00 AM CDT Body Mass Index 18.31 10/29/2024 11:00 AM CDT Plan of Treatment Not on file Procedures Procedure Name Priority Date/Time Associated Diagnosis Comments MCT - MOBILE CARDIAC TELEMETRY EVENT MONITOR Routine 10/29/2024 11:21 AM CDT Palpitations POCT LIPID PANEL Routine 10/29/2024 11:07 AM CDT Lipid screening ELECTROCARDIOGRAM REPORT Routine 025 11:01 AM CDT Palpitations PSA SCREEN Routine 02/13/2024 7:17 AM CDT Prostate cancer screening CT LUNG CANCER SCREENING Schedule Routine, Read Routine (OP Routine) 01/01/2024 6:31 AM CDT Cigarette smoker HM COLONOSCOPY Routine 07/30/2020 from Last 3 Months or Most Recently Relevant to Health Maintenance Results * MCT Mobile Cardiac Telemetry Event Monitor (10/29/2024 11:21 AM CDT) Anatomical Region Laterality Modality Electrocardiogra phy Narrative 11/13/2024 8:58 AM CDT AMBULATORY BEDSPREAD CUTTER REPORT Patient Name: Deshawn William Date of : 1965 Requesting Physician: Dr. Hunt Date of interpretation: 11/13/24 Type of monitor : [facility] [place] Date of the study/Enrollment period: 10/29/2024 - 11/11/2024 Indication: Palpitations Quality of the study: Excellent (diagnostic 86%; artifact <1%) Interpretation: The predominant rhythm was sinus with ventricular rates ranging from 48 beats per minute to 139 beats per minute. No arrhythmias. No high-grade AV block or significant pauses. Ventricular ectopy and supraventricular ectopy burden less than 1% Josiah Mendez MD 11/13/24 Voice recognition software was used to complete this document, therefore, transcription typist variances may occur. Result [facility] us Johnson Hunt MD CV CARDIAC SERVICES PROCEDURES F inal Result * (ABNORMAL) POCT lipid panel (10/29/2024 11:07 AM CDT) Cholesterol, POC 158 <200 MG/DL HDL, POC 43 >=40 mg/dL Triglycerides, POC 224(A) <=149 mg/dL LDL Cholesterol POC 69 <=129 mg/dL Chol/HDL Ratio, POC 3.6 NONE Non-HDL Cholesterol, POC 114 NONE mg/dL Cholesterol Total, POC 158 30 - 199 mg/dL Capillary blood 10/29/2024 1 1:07 AM CDT Result Markus Hunt MD POINT OF CARE TEST ORDERABLES Fi nal Result * Electrocardiogram Report (10/29/2024 11:01 AM CDT) Result [facility] Johnson Hunt MD ECG ORDERABLES Final Result * PSA screen (02/13/2024 7:17 AM CDT) PSA 0.60 < OR = 4.00 ng/mL [facility] Comment: The total PSA value from this assay system is standardized against the WHO standard. The test result will be approximately 20% lower when compared to the equimolar-standardized total PSA (Aly Hudson). Comparison of serial PSA results should be interpreted with this fact in mind. This test was performed using the Siemens chemiluminescent method. Values obtained from different assay methods cannot be used interchangeably. PSA levels, regardless of value, should not be interpreted as absolute evidence of the presence or absence of disease. Blood 02/13/2024 7:17 AM CDT 02/13/2024 7:17 AM CDT Result [facility] Shilpa VIVAS LAB BLOOD ORDERABLES Final Result [facility] [address] [address] Hung[address]TOBY [phone] * CT Lung Cancer Screening (01/01/2024 6:31 AM CDT) Anatomical Region Laterality Modality Chest N/A Computed Tomogra phy 01/01/2024 8:02 PM CDT Narrative 01/01/2024 8:08 PM CDT EXAM DESCRIPTION: CT LUNG CANCER SCREENING REASON FOR STUDY: Screening CT of the chest in a current smoker with a 43 pack year smoking history. Additional history: None. TECHNIQUE: Low dose CT scan of the chest was performed without intravenous contrast using helical scanning technique. The exam extends from the lung apices through the lung bases. Automatic exposure control was used as a dose optimization technique. NOTE: This study was performed for the specific purposes of lung cancer screening and is not an alternative to diagnostic chest CT. RADIATION DOSE: CT dose index volume (CTDIvol) = 2.86 mGy COMPARISON: CT chest 11/04/2022 FINDINGS: SMOKING RELATED LUNG DISEASE: Moderate bilateral emphysema. LUNG NODULES: Stable 4 mm ground-glass nodule in the right middle lobe (3/181), 5 mm perifissural nodule in the right middle lobe (3/183), 3 mm perifissural nodule in the right middle lobe (3/56) and 2 mm subpleural nodule in the left upper lobe. No new or suspicious pulmonary nodule. CORONARY ARTERY CALCIFICATION: None OTHER: No focal consolidation, pleural effusion or pneumothorax. Normal-sized heart without pericardial effusion. Normal caliber of the great vessels. Atherosclerotic calcification of the aorta. No thoracic lymphadenopathy. Calcified mediastinal lymph nodes visualized upper abdomen demonstrates no acute findings. No suspicious osseous findings. IMPRESSION: Stable bilateral pulmonary nodules measuring 5 mm or less. New or suspicious pulmonary nodule. Lung-RADS category 2: Benign appearance or behavior. Recommendation: Low dose Screening CT of chest in 12 months. THIS IS AN ELECTRONICALLY VERIFIED FINAL REPORT 01/01/2024 8:08 PM - Electronically signed by Magaly Barton M.D. FT: FT Report ID: [id number] Reading Location: [id number] Procedure Note Magaly Matthews MD - 01/01/2024 EXAM DESCRIPTION: CT LUNG CANCER SCREENING REASON FOR STUDY: Screening CT of the chest in a current smoker with a43 pack year smoking history. Additional history: None. TECHNIQUE: Low dose CT scan of the chest was performed without intravenous contrast using helical scanning technique. The exam extends from the lung apices through the lung bases. Automatic exposure control was used as adose optimization technique. NOTE: This study was performed for the specific purposes of lung cancer screening and is not an alternative to diagnostic chest CT. RADIATION DOSE: CT dose index volume (CTDIvol) = 2.86 mGy COMPARISON: CT chest 11/04/2022 FINDINGS: SMOKING RELATED LUNG DISEASE: Moderate bilateral emphysema. LUNG NODULES: Stable 4 mm ground-glass nodule in the right middle lobe (3/181), 5 mm perifissural nodule in the right middle lobe (3/183), 3 mm perifissural nodule in the right middle lobe (3/56) and 2 mm subpleuralnodule in the left upper lobe. No new or suspicious pulmonary nodule. CORONARY ARTERY CALCIFICATION: None OTHER: No focal consolidation, pleural effusion or pneumothorax. Normal-sized heart without pericardial effusion. Normal caliber of thegreat vessels. Atherosclerotic calcification of the aorta. No thoracic lymphadenopathy. Calcified mediastinal lymph nodes visualized upperabdomen demonstrates no acute findings. No suspicious osseous findings. IMPRESSION: Stable bilateral pulmonary nodules measuring 5 mm or less.New or suspicious pulmonary nodule. Lung-RADS category 2: Benign appearance or behavior. Recommendation: Low dose Screening CT of chest in 12 months. THIS IS AN ELECTRONICALLY VERIFIED FINAL REPORT 01/01/2024 8:08 PM - Electronically signed by Magaly Barton M.D. FT: FT Report ID: [id number] Reading Location: [place] [address] [place] Shilpa VIVAS IMG CT PROCEDURES Final Re sult * HM COLONOSCOPY (07/30/2020) us Nelda Thrasher MD HEALTH MAINTENANCE Final Result from Last 3 Months or Most Recently Relevant to Health Maintenance Insurance [employer] ACCESS CHOICE [facility] ACCESS CHOICE Care Teams Work Checker Relationship Specialty Start Date End Date Shilpa Villavicencio PA [address] [address] PCP - General Internal Medicine 06/13/19 Jame Bynum MD [address] [place] [address] Consulting Physician Rheumatology 01/17/23
--- OUTSIDE RECORDS SUMMARY | 2024-11-13 13:44 | XMS_ITS | Clinical Summary ---
Author Organization [facility] Address [address] [place] [address] Care Team Providers Care Grey Roll Man Name Role Phone Shilpa Villavicencio Primary Care Provider [phone] Jame Bynum MD Unavailable [phone] Allergies No known active allergies Medications cyclobenzapri [...] smoking Assessment & Plan (06/25/2023 11:11 AM PATTERN MAKER): Patient is noting palpitations. Will have to [...] Reviewed options for assistance with cessation. 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 Pt declines assistance [...] LDCT. Assessment & Plan (06/25/2023 11:10 AM PATTERN MAKER): Encouraged smoking cessation. Discussed 3 minutes. Reviewed options for assistance with cessation. 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 Pt declines assistance at this time but may contact the office at anytime for further help as they desire. Low-dose CT will be due in October of 2023 Assessment & Plan (03/14/2023 12:15 AM CDT): Encouraged smoking cessation. Discussed 3 minutes. Reviewed options for assistance with cessation. Reviewed long-term sequela associated with smoking. Pt declines assistance [...] maintain. Assessment & Plan (06/25/2023 11:10 AM PATTERN MAKER): Weight/BMI is in healthy range. Continue healthy lifestyle to maintain. Assessment & Plan (03/13/2023 5:21 PM CDT): Weight/BMI is in healthy range. Continue healthy lifestyle to maintain. Psoriasis 03/09/2023 Assessment & Plan (08/02/2023 1:57 PM PATTERN MAKER): Dx by derm 9/12 with psoriasis. Assessment & Plan (07/28/2023 12:46 PM PATTERN MAKER): Dx by derm 9/12 with psoriasis. Assessment & Plan (06/25/2023 11:10 AM PATTERN MAKER): Continue per [facility]. Currently on methotrexate 15 q.week and folic acid. Does not feel like the methotrexate is giving him any help so he stopped it. Recommend calling [facility] and letting them know this so he can continue to find a management medication. Assessment & Plan (04/27/2023 7:48 AM PATTERN MAKER): Dx by derm 02/21 with psoriasis. Assessment & Plan (03/14/2023 12:14 AM CDT): Continue per Dermatology. Currently using topicals Assessment & Plan (03/09/2023 8:31 AM CDT): Dx by derm 02/21 with psoriasis. Psoriatic arthritis 02/23/2023 Assessment & Plan (08/25/2024 8:43 PM CDT): Psoriatic arthritis diagnosis. He had been following with [facility] but difficult for him to make the trip over. Would like to be seen more locally to discuss biologics or other interventions as he is still in quite a bit of pain. Will make the referral to [facility] for further evaluation Assessment & Plan (02/20/2024 8:42 AM CDT): Encouraged follow-up with [facility] to discuss treatment options. Continue with [...] 61 Assessment & Plan (08/03/2023 5:19 PM PATTERN MAKER): Images from the original note were not [...] 61 Assessment & Plan (07/28/2023 12:46 PM PATTERN MAKER): Images from the original note were not [...] 61 Assessment & Plan (06/25/2023 11:10 AM PATTERN MAKER): Continue per [facility]. Currently on methotrexate 15 q.week and folic acid. Does not feel like the methotrexate is giving him any help so he stopped it. Recommend calling [facility] and letting them know this so he can continue to find a management medication. Assessment & Plan (04/27/2023 2:43 PM PATTERN MAKER): Images from the original note were not [...] 03/2023. Assessment & Plan (08/02/2023 1:57 PM PATTERN MAKER): HLA B27 neg 06/2019 Confirmed psoriasis by derm 02/11/2023. Cxr neg 03/2023 Hep Band c neg 03/2023 Avise neg 03/2023. Assessment & Plan (07/28/2023 12:46 PM PATTERN MAKER): HLA B27 neg 06/2019 Confirmed psoriasis by derm 02/11/2023. Cxr neg 03/2023 Hep Band c neg 03/2023 Avise neg 03/2023. Assessment & Plan (04/27/2023 2:43 PM PATTERN MAKER): HLA B27 neg 06/2019 Confirmed psoriasis by derm 02/11/2023. Cxr neg 03/2023 Hep Band c neg 03/2023 Avise neg 03/2023. Assessment & Plan (03/09/2023 8:31 AM CDT): HLA B27 neg 06/2019 Confirmed psoriasis by derm 02/11/2023. Abnormal chest CT 02/23/2023 Assessment & Plan (08/02/2023 1:57 PM PATTERN MAKER): Abn chest ct with some ground glass [...] 06/14/2021 Assessment & Plan (06/25/2023 11:09 AM PATTERN MAKER): Patient continues to work through his 's [...] antidepressant lies continue support through family and uatsdin. May call at any time for assistance [...] shown Assessment & Plan (07/08/2020 9:23 PM PATTERN MAKER): Shoulder/ribs and chest wall pain. Hasn't had help from Ortho. Will refer to Pain management for further evlauation. Prefers [facility] in [place] Chest wall pain, chronic 07/08/2020 Assessment & Plan (06/25/2023 11:12 AM PATTERN MAKER): Unable to obtain Tylenol threes. Will transition to tramadol for p.r.n. use for breakthrough pain. Assessment & Plan (03/14/2023 12:13 AM CDT): Chronic rib and scapular and sternum playing. Continue per [facility] and will await recommendations as may [...] prn Assessment & Plan (07/08/2020 9:23 PM PATTERN MAKER): Shoulder/ribs and chest wall pain. Hasn't had help from Ortho. Will refer to Pain management for further evlauation. Prefers [facility] in [place] Lung nodule 03/12/2020 Overview (01/16/2021): 06/2019 CT at [facility] A sub 6 mm indeterminate right middle lobe pulmonary nodule. Recommend follow-up chest CT in 1 year to document stability. 07/2020 - stable-->2021 Assessment & Plan (12/19/2022 7:18 PM CDT): LDCT complete on 11/04/2022 and lung nodules are stable. Follow up in 12 months. Assessment & Plan (07/08/2020 9:27 PM PATTERN MAKER): 06/2019 CT at [facility] A sub 6 mm indeterminate right middle [...] shown Assessment & Plan (07/08/2020 9:21 PM PATTERN MAKER): Shoulder/ribs and chest wall pain. Hasn't had [...] recheck his labs. Continue treatment control with [id number] cough syrup or Tessalon Perles which she [...] 021 Assessment & Plan (07/08/2020 3:02 PM PATTERN MAKER): Weight/BMI is in healthy range. Continue healthy lifestyle to maintain. Screening for colon cancer 04/07/2020 0 01/16/2021 Assessment & Plan (07/08/2020 9:22 PM PATTERN MAKER): Await results from Dr. Thrasher Assessment & Plan (04/07/2020 9:16 PM CDT): Refer to Dr. thrasher Encounter for screening colonoscopy 03/25/2020 04/07/2020 Overview (03/25/2020): Added automatically from request for surgery [id number] BMI 20.0-20.9, adult 03/12/2020 021 Assessment & [...] Reviewed options for assistance with cessation. 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 Pt declines assistance at this time but may contact the office at anytime for further help as they desire. Due for low-dose CT after October the 11/29/2022. Will place order Assessment & Plan (03/28/2022 9:12 PM CDT): Encouraged smoking cessation. Discussed 3 minutes. Reviewed options for assistance with cessation. Reviewed long-term sequela associated with smoking. Pt declines assistance at this time but may contact the office at anytime for further help as they desire. Low-dose CT due to repeat in October of 2022. Will order at next visit Assessment & Plan (10/05/2021 6:16 AM CDT): Encouraged smoking cessation. Discussed 3 minutes. Reviewed options for assistance with cessation. 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 Pt declines assistance [...] thoughts Assessment & Plan (07/08/2020 9:22 PM PATTERN MAKER): Encouraged smoking cessation. Discussed 3 minutes. Reviewed options for assistance with cessation. 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 Pt declines assistance at this time but may contact the office at anytime for further help as they desire. Assessment & Plan (04/07/2020 9:15 PM CDT): Encouraged smoking cessation. Discussed 3 minutes. Reviewed options for assistance with cessation. 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 Pt declines assistance at this time but may contact the office at anytime for further help as they desire. Assessment & Plan (03/12/2020 10:30 PM CDT): Encouraged smoking cessation. Discussed 3 minutes. Reviewed options for assistance with cessation. Reviewed long-term sequela associated with smoking. Pt declines assistance [...] health. Reviewed immunizations Reviewed age appropirate screenings. Encounters Date Type Department Care Team Description 10/29/2024 11:30 AM CDT Ancillary Procedure [facility] [address] [place] [phone] Palpitations 10/29/2024 11:00 AM CDT Office Visit [facility] [address] [place] [phone] Johnson Hunt MD Palpitations (Primary Dx); MCKAY (dyspnea on exertion); Pulmonary emphysema, unspecified emphysema type (HCC); Tobacco abuse; Lipid screening 10/28/[address] [phone] Rosita Gleason CMA 10/21/2024 3:30 PM CDT Office Visit [address] [place] [phone] Shilpa Villavicencio PA Anxiety (Primary Dx); Cigarette smoker; Palpitations; Adult BMI <19 kg/sq m 08/19/2024 3:30 PM CDT Office Visit [address] [phone] Shilpa Villavicencio PA Psoriatic arthritis (HCC) (Primary Dx); Palpitations; Chronic right shoulder pain; Cigarette smoker; Mixed hyperlipidemia; Prediabetes; Anxiety; Stress; Adult BMI <19 kg/sq m 08/13/2024 Results Follow-Up [place] [id number] [facility] [address] [place] [phone] Shilpa Villavicencio, ORTEGA CBC with auto differential from Last 3 Months Immunizations Immunization Administration Dates Next Due Flucelvax Influenza Quad 04/01/2017 Influenza, Quadrivalent, Spl it, Preservative Free, Intramuscular 03/28/2022,03/29/2021,03/12/2020,03/29 Influenza, Trivalent, Preser vative Free, Intramuscular 03/25/2014 Influenza, Unspecified 06/12/2024(Deferr ed: Patient Refused),06/19/2023(Deferred: Patient decision),07/13/2022(Deferred: Patient Refused) Moderna SARS-CoV-2 Monovalen t Vaccination (12+ YRS) 04/29/2021 Tdap 03/12/2020 Medical History Medical History Date Comments Kidney stones Family History Medical History Relation Name Comments Arthritis Father Lung cancer Father Mesothelioma - (Added by TW Conv) Arthritis Mother Rheum arthritis Mother Relation Name Status Comments Father Mother Alive Social History Tobacco Use Types Packs/Day Years [...] on file Legal Sex Male 10:36 AM PATTERN MAKER Gender Identity Not on file Sexual Orientation Not on file Obstetrics History Last Filed Vital Signs Vital Sign Reading [...] 10/29/2024 11:00 AM CDT Plan of Treatment Health Maintenance Due Date Last Done Comments Hepatitis C Screening 1965 Pneumococcal vaccine <65 (1 of 2 - PCV) 1984 Zoster Vaccine (1 of 2) 12/19/2015 Covid-19 Vaccine (4 - 2023-2 5 season) 2024 04/29/2021, 08/28/2020, 08/04/2020 Regular Well Visit/Exam 18-64 11/22/2024, 10/10/2022, 10/04/2021, Additional history exists Lung Cancer Screening 01/01/2025 01/01/2024 , 11/04/2022, 11/03/2021 Influenza Vaccine (Season Ended) 2025 03/28/2022, 03/29/2021, 03/12/2020, Additional history exists Depression Screening 10/21/2025 10/21/2024, 08/19/2024, 02/20/2024, Additional history exists Prostate Cancer Screening-PSA 02/12/2026 02/13/2024, 10/16/2021 DTaP/Tdap/Td Vaccine (2 - Td or Tdap) 03/12/2030 03/12/2020 Colon Cancer Screening-Colonoscopy 07/30/2030 07/30/2020 Colon Cancer Screening-CT Colonography Discontinued 07/30/2020 Colon Cancer Screening-DNA Stool Discontinued 07/30/19 Colon Cancer Screening-FIT Discontinued 07/30/2020 Colon Cancer Screening-Sigmoidoscopy Discontinued 07/30/2020 Hepatitis B Screening Completed 03/09/2023 Procedures Procedure Name Priority Date/Time Associated Diagnosis [...] phy Narrative 11/13/2024 8:58 AM CDT AMBULATORY POSITION CLERK REPORT Patient Name: Deshawn William Date of : 1965 Requesting Physician: Dr. Hunt Date of interpretation: 11/13/24 Type of monitor : ANASTACIA Date of the study/Enrollment period: 10/29/2024 - [...] was used to complete this document, therefore, vice admiral variances may occur. us Johnson Hunt MD [facility] [...] blood 10/29/2024 1 1:07 AM CDT Result [facility] us Johnson Hunt MD POINT OF CARE TEST ORDERABLES Fi nal Result * Electrocardiogram Report (10/29/2024 11:01 AM CDT) Result [facility] us Johnson Hunt MD ECG ORDERABLES Final Result * PSA screen (02/13/2024 7:17 AM CDT) PSA 0.60 < OR = 4.00 ng/mL [facility] Comment: The total PSA value from this assay system is standardized against the WHO standard. The test result will be approximately 20% lower when compared to the equimolar-standardized total PSA (Aly Rox). Comparison of serial PSA results should be interpreted with this fact in mind. This test was performed using the Siemens chemiluminescent method. Values obtained from different assay methods cannot be used interchangeably. PSA levels, regardless of value, should not be interpreted as absolute evidence of the presence or absence of disease. Blood 02/13/2024 7:17 AM CDT 02/13/2024 7:17 AM CDT Result [facility] Shilpa VIVAS LAB BLOOD ORDERABLES Final Result Performing Organization Address City/State/[facility] Co de Phone Number [facility] [address] [place] [address] * CT Lung Cancer Screening (01/01/2024 6:31 [...] Magaly Barton M.D. FT: FT Report ID: [id number] Reading Location: [id number] Procedure Note Magaly Matthews MD - 01/01/2024 [...] Magaly Barton M.D. FT: FT Report ID: [id number] Reading Location: [place] [address] PROCEDURES Final Re sult * HM COLONOSCOPY (07/30/2020) Nelda Thrasher MD HEALTH MAINTENANCE Final Result from Last 3 Months or Most Recently Relevant to Health Maintenance Insurance [employer] ACCESS CHOICE Member Subscriber Plan / Payer (Ef fective 2022-Present) Name:Deshawn William Member ID:[id number] Relation to Subscriber:Self Name:Deshawn William Subscriber ID:[id number] Payer ID:[id number] (NAIC) Type: [employer]IANCE Address: [facility] [id number] [place] [id number] Care Teams Grey Roll Man Relationship Specialty Start Date End Date Shilpa Villavicencio PA [address] [facility] [address] [place] [address] PCP - General Internal Medicine 06/13/19 Jame Bynum MD [address] [place] [address] Consulting Physician Rheumatology 01/17/23
== END 2024-11-13 13:39 | disposition home or self-care (01) ==
PROVIDERS: PCP Physician Assistant; Visit Provider Internal Medicine
DX: M46.1 Sacroiliitis, not elsewhere classified (principal); M43.28 Fusion of spine, sacral and sacrococcygeal region; M51.379 Other intervertebral disc degeneration, lumbosacral region without mention of lumbar back pain or lower extremity pain; M45.6 Ankylosing spondylitis lumbar region
CPT/HCPCS: 71110; 72110; 72202

== ENCOUNTER 2024-11-30 07:41 | Outpatient (CLI) | payer BC, SELFPAY ==
--- NOTE | ~2024-11-30 | MR_ITS ---
MRI of the pelvis CLINICAL HISTORY: Ankylosing spondylitis TECHNIQUE: T1-weighted and T2 fat-sat images were acquired through the pelvis in the axial, coronal, and sagittal planes. FINDINGS: There is mild bone marrow edema both sides of the SI joints bilaterally, which could reflec t early sacroiliitis. No cecilio erosive change identified. Bilateral hip joints demonstrate minimal ch ondral thinning, right worse than left. No fracture or avascular necrosis identified. There is focal marrow edema at the right lesser trochanter of the proximal femur, nonspecific. Visualized musculature of the pelvis is unremarkable. No muscle atrophy or edema evident. Visualized tendons are intact. No soft tissue mass or fluid collection seen. IMPRESSION: Patchy marrow edema involving both sides of the SI joints bilaterally, compatible with early changes of bilateral sacroiliitis. No cecilio erosive change or ankylosis of the SI joints seen. Focal nonspecific marrow edema at the right lesser trochanter. Reviewed, dictated and finalized at [facility]. IMPRESSION: Patchy marrow edema involving both sides of the SI joints bilaterally, compatib le with early changes of bilateral sacroiliitis. No cecilio erosive change or ank ylosis of the SI joints seen. Focal nonspecific marrow edema at the right lesser trochanter.
--- NOTE | ~2024-11-30 | MR_ITS ---
MRI of the lumbar spine Clinical History: Ankylosing spondylitis Technique: Axial T2-weighted images, and sagittal T1-weighted, T2-weighted, and T2 fat-sat images wer e acquired. Findings: There is no fracture or subluxation of the lumbar spine. Vertebral bodies maintain normal h eight. No bone marrow signal abnormality evident. At L1-L2, L2-L3, and L3-L4, there is no disc bulge or herniation. There are mild facet joint degenera tive changes at these levels. No spinal canal stenosis or neural foraminal narrowing at these levels. At L4-L5, there is minimal disc bulge. There is mild facet arthropathy. No central canal stenosis. Th ere is moderate bilateral foraminal narrowing and mild right neural foraminal narrowing. At L5-S1, there is minimal disc bulge with mild facet arthropathy. No central canal stenosis. There i s moderate to advanced left neural foraminal narrowing and minimal right neural foraminal narrowing. Paravertebral soft tissues are unremarkable.. Impression: Bilateral neural foraminal narrowing at L4-L5 and L5-S1, as detailed above. Reviewed, dictated and finalized at location M. Impression: Bilateral neural foraminal narrowing at L4-L5 and L5-S1, as detailed above.
== END 2024-11-30 07:42 | disposition home or self-care (01) ==
LOC: MICIMG 07:41
PROVIDERS: PCP Physician Assistant; Visit Provider Internal Medicine
DX: M45.9 Ankylosing spondylitis of unspecified sites in spine (principal)
CPT/HCPCS: 72148; 72195